=== PATIENT | female | born 1950 | race Asian ===

== ENCOUNTER 2019-04-22 08:30 | Inpatient (IN) | payer OTHER ==
[~2019-04-22] VITALS: Ht 154.9 cm; Wt 64.9 kg
[~2019-04-22 08:30] MED LIST: ceFAZolin sod 1 GM in NS 55 ML IVPB ONE
[2019-06-03] VITALS (10 sets, daily range): BP systolic 142–161; BP diastolic 71–88
[2019-06-03] MEDS ORDERED: ceFAZolin sod 1 GM in NS 55 ML IVPB ONE (07:00)
[2019-06-03] MEDS ORDERED: Rocuronium Bromide 50mg/5ml Inj IV ONE (10:04)
--- NOTE | 2019-06-03 10:20 | NUR ---
IV LR WAS STARTED BY JESUS MATTAOPS RN. NO S/S OF INFILTRATION.
[2019-06-03] MEDS ORDERED: LR 1000ml 1,000 ML IVLG SCH (10:22)
[2019-06-03] MEDS ORDERED: SYMBICORT2 PUFF1 INH (10:24)
[2019-06-03] MEDS ORDERED: HYDROCHLOROTHIA25 MG ORAL (10:24)
[2019-06-03] MEDS ORDERED: SINGULAIR10 MG ORAL (10:24)
[2019-06-03] MEDS ORDERED: XOPENEX HFA15 GM IH (10:24)
--- NOTE | 2019-06-03 10:28 | Anethesia Preoperative Eval ---
Anesthesia Pre-op PMH/ROS General Date of Evaluation: Jun 03, 2019 Time of Evaluation: 10:56 Anesthesiologist: Alexei ASA Score: ASA 3 Mallampati Score Class I : Soft palate, uvula, fauces, pillars visible Class II: Soft palate, uvula, fauces visible Class III: Soft palate, base of uvula visible Class IV: Only hard plate visible Mallampati Classification: Class II Surgeon: Sheba Diagnosis: Back Pain Surgical Procedure: Bilateral L4-5, L5-S1 Laminectomy, Discectomy Anesthesia History: none Family History: no anesthesia problems Allergies: Coded Allergies: No Known Allergies (Unverified , 04/17/19) Medications: see eMAR Patient NPO?: Yes Past Medical History Cardiovascular: Reports: HTN Pulmonary: Reports: asthma HEENT: Reports: cataract (L), cataract (R) PSxH Narrative: L Knee Arthroscopy, L Cat Ext IOL Anesthesia Pre-op Phys. Exam Physician Exam Vital Signs Date Time Temp Pulse Resp B/P (MAP) Pulse Ox O2 Delivery O2 Flow Rate FiO2 06/03/19 10:25 Room Air 06/03/19 10:41 98.6 67 20 143/73 (96) 96 Constitutional: NAD Neurologic: CN 2-12 intact Cardiovascular: RRR Respiratory: CTA Gastrointestinal: S/NT/ND Airway Exam Mallampati Score: Class II MO: full ROM: limited Teeth: missing, intact Anesthesia Pre-op A/P Risk Assessment & Plan Assessment: ASA 3 Plan: GA, SED, GlideScope Go Status Change Before Surgery: No Pre-Antibiotics Dru Grams Ancef IV Given Within 1 Hr of Incision: Yes Time Given: 11:16 Isacc Linda MD Jun 03, 2019 10:28
--- NOTE | 2019-06-03 10:29 | Immediate Post-Op Evaluation ---
Immediate Post-Op Evalulation Immediate Post-Op Evalulation Procedure: Bilateral L4-5, L5-S1 Laminectomy, Discectomy Date of Evaluation: Jun 03, 2019 Time of Evaluation: 13:39 IV Fluids: 800 LR Blood Products: 0 Estimated Blood Loss: 50 Urinary Output: 200 Blood Pressure Systolic: 161 Blood Pressure Diastolic: 85 Pulse Rate: 82 Respiratory Rate: 16 O2 Sat by Pulse Oximetry: 100 Temperature (Fahrenheit): 97.5 Pain Score (1-10): 2 Nausea: No Vomiting: No Complications 0 Patient Status: awake, reacts, patent, extubated, none Hydration Status: adequate Dru Grams Ancef IV Time Given: 11:16 Isacc Linda MD Jun 03, 2019 10:29
[2019-06-03] MEDS ORDERED: HYDROcodone/Acetamin 7.5/325 tab ORAL PRN (10:30)
[2019-06-03] MEDS ORDERED: LORazepam Inj 2mg/ml 1ml IV PRN (10:30)
[2019-06-03] MEDS ORDERED: Hydromorphone 0.5mg/0.5ml inj IVP PRN (10:30)
[2019-06-03] MEDS ORDERED: oxyCODONE HCL/Acetaminophen 5/325mg ORAL PRN (10:30)
[2019-06-03] MEDS ORDERED: fentaNYL 100 mcg/2 mL IV PRN (10:30)
[2019-06-03] MEDS ORDERED: HYDROcodone/Acetamin 5/325 tab ORAL PRN ×2 (10:30→10:45)
[2019-06-03] MEDS ORDERED: Labetalol 5mg/ml 20ml vial IV PRN (10:30)
[2019-06-03] MEDS ORDERED: Ketorolac 30mg Inj IV PRN ×2 (10:30)
[2019-06-03] MEDS ORDERED: Meperidine 50mg/ml Inj(FOR RIGORS ONLY) IVP PRN (10:30)
[2019-06-03] MEDS ORDERED: Acetaminophen (Non formulary) 100 ML IV ONE (10:30)
[2019-06-03] MEDS ORDERED: Metoclopramide 10mg/2ml Inj IVP PRN (10:30)
[2019-06-03] MEDS ORDERED: Midazolam 2mg/2ml Inj IVP PRN (10:30)
[2019-06-03] MEDS ORDERED: DiphenhydrAMINE 50mg/ml Inj IVP PRN (10:30)
[2019-06-03] MEDS ORDERED: Atropine Sulfate 0.4mg/ml inj IVP PRN (10:30)
[2019-06-03] MEDS ORDERED: Bupivacaine w/Epi 0.5% 30ml Vial INJ ONE (10:34)
[2019-06-03] MEDS ORDERED: Thrombin 5000 units TOPIC ONE ×2 (10:34→11:09)
[2019-06-03] MEDS ORDERED: Gelfoam Size TOPIC ONE (10:34)
[2019-06-03] MEDS ORDERED: Bacitracin 50000 Units Vial ONE (10:34)
[2019-06-03] MEDS ORDERED: Lidocaine 1% MPF 10mg/ml 5ml ONE (10:44)
[2019-06-03] MEDS ORDERED: Sodium Chloride 10ml vial INJ ONE (10:44)
[2019-06-03] MEDS ORDERED: Dexamethasone 4mg/ml vial ONE (10:44)
[2019-06-03] MEDS ORDERED: Morphine Sulfate 4mg/ml Inj (IV USE ONLY) IVP PRN (10:45)
[2019-06-03] MEDS ORDERED: Cyclobenzaprine 10mg Tab ORAL PRN (10:45)
[2019-06-03] MEDS ORDERED: Midazolam 2mg/2ml Inj ONE (10:46)
[2019-06-03] MEDS ORDERED: fentaNYL 100 mcg/2 mL IV ONE (10:46)
--- NOTE | 2019-06-03 10:46 | Pre-Procedure Note/Attestation ---
Pre-Procedure Note/Attestation Complete Prior to Procedure Procedure Narrative: L45S1 laminectomy and discectomy B Indications for Procedure Pre-Operative Diagnosis: L45S1 HNP Attestation I attest that I discussed the nature of the procedure; its benefits; risks and complications; and alternatives (and the risks and benefits of such alternatives ), prior to the procedure, with the patient (or the patient's legal sales representative girls' apparel). I attest that, if there was a reasonable possibility of needing a blood transfusion, the patient (or the patient's legal sales representative girls' apparel) was given the [facility] standardized written summary, pursuant to the [place] Blood Safety Act ([place] Health and Safety Code # 1645, as amended). I attest that I re-evaluated the patient just prior to the surgery and that there has been no change in the patient's H&P, except as documented below: Angelo Scruggs MD Jun 03, 2019 10:46
[2019-06-03] MEDS ORDERED: Lidocaine 1% Plain 30 ml INJ ONE (10:53)
[2019-06-03] MEDS ORDERED: Neostigmine 1mg/ml 10ml Inj ONE (11:00)
[2019-06-03] MEDS ORDERED: Sterile Water Irrig 1000ml IRRIG ONE (11:00)
[2019-06-03] MEDS ORDERED: NS Irrig 1000ml ONE (11:00)
[2019-06-03] MEDS ORDERED: Propofol 1,000mg/ 100ml btl IV ONE (11:00)
[2019-06-03] MEDS ORDERED: LR 1000ml ONE (11:00)
[2019-06-03] MEDS ORDERED: Morphine Sulfate 2mg/ml Inj(IV/IM USE ONLY) IVP PRN (11:00)
[2019-06-03] MEDS ORDERED: Vancomycin 1gm vial IVPB ONE ×2 (11:09→11:47)
--- NOTE | 2019-06-03 12:21 | 48 Hour Post Anesthesia Eval ---
Post Anesthesia Evaluation Procedure: Bilateral L4-5, L5-S1 Laminectomy, Discectomy Date of Evaluation: Jun 03, 2019 Time of Evaluation: 15:52 Blood Pressure Systolic: 156 0: 72 Pulse Rate: 67 Respiratory Rate: 18 Temperature (Fahrenheit): 98.2 O2 Sat by Pulse Oximetry: 100 Airway: patent Nausea: No Vomiting: No Pain Intensity: 2 Hydration Status: adequate Cardiopulmonary Status: Stable Mental Status/LOC: patient returned to baseline Follow-up Care/Observations: 0 Post-Anesthesia Complications: 0 Follow-up care needed: N/A Isacc Linda MD Jun 03, 2019 12:21
[2019-06-03] MEDS ORDERED: Glycopyrrolate 0.2mg/ml 1ml Vial ONE ×3 (12:52→12:57)
[2019-06-03] MEDS ORDERED: Naloxone 0.4mg/ml Inj ONE (13:04)
--- NOTE | 2019-06-03 13:28 | Brief Operative Note ---
Immediate Post Operative Note Operative Note Pre-op Diagnosis: L45S1 HNP Procedure: B laminectomy L45, L lami disc l5s1 Post-op Diagnosis: same as pre-op Findings: consistent w/pre-op dx studies Surgeon: radha [place] [employer] Maintainer: yanna Anesthesiologist: edda Anesthesia: general Specimen: none Complications: none Condition: stable Fluids: 800 Estimated Blood Loss: minimal Drains: none Implant(s) used?: No Angelo Scruggs MD Jun 03, 2019 13:28
[2019-06-03] MEDS ORDERED: Milk of Magnesia 30ml Ud ORAL PRN (13:30)
[2019-06-03] MEDS ORDERED: Chloraseptic Spray 20mL Bottle ORAL PRN (15:32)
--- NOTE | 2019-06-03 15:39 | Diagnostic Imaging Report ---
. INDICATION: Pain, intraoperative TECHNIQUE: Intraoperative imaging Fluoroscopy time: 3.8 seconds Total dose: 0.07103 mGym2 Total number of images: One COMPARISON: None FINDINGS: Single intraoperative image demonstrates a surgical tool posterior what is presumably the L5-S1 disc. IMPRESSION: Intraoperative imaging, as described
[2019-06-03] MEDS ORDERED: Albuterol/Ipratropium 3ml neb HHN PRN (15:45)
--- NOTE | 2019-06-03 15:45 | NUR ---
NURSE NOTES: Pt arrived alert breathing with oxygen. Has full sensation to all digits, in lower extremities. Bandage is clean and intact. SCD on and functioning. Call light is in reach. Ice chips provided denies pain at this time
--- NOTE | 2019-06-03 15:50 | NUR ---
NURSE NOTES: Pt received with eye patch to left eye, per pt had a recent cataract as of 3 weeks ago Per pt vision is not blurred denies pain or discomfort. Patch removed by Surgery Nurse
--- NOTE | 2019-06-03 16:30 | NUR ---
NURSE NOTES: Remains comfortable states she does not take mediation and feels alive feeling some discomfort. Refused pain mediation at this time. Reposited
[2019-06-03] MEDS: D5 1/2NS 1,000 ML IV SCH (17:29)
[2019-06-03] MEDS: Docusate 100mg cap ORAL SCH (17:29)
--- NOTE | 2019-06-03 17:45 | Consultation ---
DATE OF CONSULTATION: 06/03/2019 CONSULTING PHYSICIAN: Blaze Rivera M.D. REFERRING PHYSICIAN: Angelo Scruggs M.D. REASON FOR CONSULTATION: Acute pain consult. HISTORY OF PRESENT ILLNESS: Dear Dr. Angelo Scruggs, Thank you kindly for consulting me to evaluate and render an opinion as to how to proceed in the management of the patient's acute postoperative lumbar spine pain after her lumbar spine decompressive surgery today. On the request of the patient at the bedside, I discussed the case in detail with yourself, Dr. Cunningham along with the nurse, QUIRINO Sherman. The patient injured her lumbar spine in a work-related injury. Today, she required bilateral decompressive lumbar spine surgery. I was consulted to help with her postoperative care and pain management. I saw the patient at bedside with her . I performed a detailed history and physical examination. I spent over 75 minutes in consultation with an additional 30 minutes in medical record review. Multiple records reviewed from the patient's medical chart including utilization review and surgical authorization by [facility] authorizing lumbar spine surgery with hospitalization at [facility] as certified. Further record review included preoperative history and physical by Dr. John Marcus dated May 30, 2019 along with diagnostic testing. Multiple records were reviewed from today's date of surgery at [facility], including consent for surgical treatment, consent for anesthesia, consent for blood products, medication administration record, medication reconciliation order form, PACU record, PACU orders, anesthesia record, pre- and post anesthesia evaluation record, postoperative surgery report and postoperative spine surgery report by Dr. Scruggs, guidelines for prophylactic antibiotics, guidelines for DVT prophylaxis, initial nursing assessment, 24-hour medical and surgical flow sheet, surgical invasive procedure checklist, and Donald-Corley diagram for cognitive disability. PAST MEDICAL HISTORY: 1. Acute postoperative lumbar spine pain, status post lumbar spine surgery by Dr. Angelo Scruggs, May 2019. 2. Work-related injury. 3. Elderly age. 4. Chronic asthma. 5. Chronic lower back pain. 6. Hypertension. 7. Kidney stones. 8. Fatty liver. PAST SURGICAL HISTORY: 1. Left knee arthroscopy. 2. Left eye cataract surgery, 05/13/2019. FAMILY HISTORY: Hypertension, coronary artery disease, malignancy. SOCIAL HISTORY: The patient is accompanied at the bedside by her . She denies tobacco, alcohol, or illicit drug use. MEDICATIONS AT HOME: Xopenex, Singulair, hydrochlorothiazide, and Symbicort. ALLERGIES: No known drug allergies. REVIEW OF SYSTEMS: Per attending physician. PHYSICAL EXAMINATION: GENERAL: Age 68. Height 5 feet 3 inches, weight 130 pounds. Body mass index 23. HEENT: Normocephalic and atraumatic. Left eye with eye patch, status post cataract surgery three weeks ago. NEUROLOGIC: Moving all extremities x4. Detailed neurologic exam per Dr. Scruggs. Pain with range of motion of the lumbar spine. CHEST: Clear to auscultation. HEART: Regular rate and rhythm. No wheezing appreciated. ABDOMEN: Soft. BREASTS/GENITOURINARY: Deferred. LABORATORY AND DIAGNOSTIC DATA: Diagnostic testing from May 30, 2019 shows glucose 99, sodium 140, potassium 3.7, chloride 104, bicarb 25, BUN 19, and creatinine 0.7. Calcium 9.6. Total protein 7.4, albumin 4.3. AST 17, ALT 18, and alkaline phosphatase 66. Total bilirubin 0.3. White count 8, hematocrit 40, and platelets 250,000. INR 1.0, PTT 27. A 12-lead EKG shows normal sinus rhythm, ventricular rate 79, no evidence for acute cardiac ischemia. Preoperative chest x-ray shows no acute cardiopulmonary disease. IMPRESSION: 1. Acute postoperative lumbar spine pain, status post lumbar spine surgery by Dr. Angelo Scruggs, May 2019. 2. Work-related injury. 3. Elderly age. 4. Chronic asthma. 5. Chronic lower back pain. 6. Hypertension. 7. Kidney stones. 8. Fatty liver. TREATMENT RECOMMENDATIONS: I have devised the following analgesic plan to help with her pain control postoperatively. The patient appears petite and relatively narcotic-naive. She has had kidney stones and previous surgeries in the past. She states that she has tolerated hydrocodone. I will start her on a low dose of [place] 5/325 mg one tablet orally every three hours p.r.n. for mild pain. The patient states that morphine has worked well during previous hospitalizations. I have started her on intravenous dose of morphine 2 mg intravenously every two hours p.r.n. for moderate pain complaints. If these two doses of [place] and morphine are inadequate, I would then increase the doses and/or frequency after these earlier doses have been tolerated without any adverse side effects including respiratory depression. I would empirically place the patient on Protonix 40 mg daily for GI ulcer prophylaxis and I have ordered p.r.n. dose of Mylanta 30 mL every 6 hours in case of any GERD symptom exacerbation. I have ordered low-dose of Flexeril 5 mg orally in case of any muscle spasm symptoms. The patient does not appear to be anxious, so I would avoid the class of benzodiazepines in this elderly woman while she is already on opioid narcotics. I have ordered a dose of Fioricet one tablet orally every 8 hours in case of any headache complaints. I have asked nursing team to place a Chloraseptic spray bottle at the bedside in case of any sore throat complaints postoperatively. I have added Zofran 4 mg intravenously every 4 hours as a rescue antiemetic. I have ordered Benadryl 25 mg orally every 6 hours in case of any itching complaints. I will order incentive spirometer to encourage good pulmonary toilet in this elderly woman. With her chronic asthma, I have asked respiratory therapy to start her on [id number] nebulizer treatment with albuterol and Atrovent to keep her asthma symptoms at bay. I will defer her chronic asthma and hypertension issues to the hospitalist physician. I will defer DVT prophylaxis to the surgeon. Blaze Rivera M.D. DR: EVENS JOB#: [id number] CC:
[2019-06-03] MEDS ORDERED: Albuterol ud Inhalation HHN SCH (19:00)
--- NOTE | 2019-06-03 19:30 | NUR ---
NURSE NOTES: Received report & pt from QUIRINO Rodríguez. Pt lying in bed, a&ox4, on O2 via NC @ 2LPM. No s/s of acute distress & no c/o pain at this time. Surgical dressing C/D/I. IV site intact with IVF running as ordered. Call light within reach. Plan of care discussed.
[2019-06-03] MEDS: Albuterol/Ipratropium 3ml neb HHN SCH (19:53)
--- NOTE | 2019-06-03 19:56 | NUR ---
NURSE NOTES: Pt escorted to restroom with use of walker , body mechanics used. Back straight while walking. Urinated without difficulty.
[2019-06-03] MEDS: ceFAZolin sod 1 GM in D5W 55 ML IV SCH (20:20)
--- NOTE | 2019-06-03 20:45 | Operative Note - Dictated ---
DATE OF OPERATION: 06/03/2019 SURGEON: Angelo Scruggs M.D. ADULT PSYCHIATRIST: Jude Lord PA-C. ANESTHESIOLOGIST: Isacc Linda M.D. ANESTHESIA TYPE: General endotracheal anesthesia. PREOPERATIVE DIAGNOSES: 1. Spinal stenosis L4-L5 with a grade 0 to 1 spondylolisthesis and advanced facet arthrosis. 2. Left-sided L5-S1 disk protrusion with lateral recess stenosis. POSTOPERATIVE DIAGNOSES: 1. Spinal stenosis L4-L5 with a grade 0 to 1 spondylolisthesis and advanced facet arthrosis. 2. Left-sided L5-S1 disk protrusion with lateral recess stenosis. PROCEDURES: 1. Bilateral hemilaminectomy at L4 and superior one-half of L5. 2. Left-sided laminectomy, decompression of nerve root, and microdiskectomy L5-S1. 3. Use of operating microscope. 4. Neurodiagnostic monitoring. 5. Use of fluoroscopy. ESTIMATED BLOOD LOSS: Minimal. COMPLICATIONS: None. FINDINGS: Notably unstable motion segments with marked thickening of the tissues and epidural adhesions at L4-L5. INDICATION: The patient is a very pleasant 68-year-old with fairly significant bilateral lower extremity radiculopathic complaints. The MRI confirmed severe spinal stenosis L4-L5, minimal anterolisthesis at L4-L5 as well as left-sided disk protrusion at L5-S1. Risks, cons, pros, benefits of surgery were discussed. After conservative care failed, the patient elected to proceed with surgical intervention. RISKS NOTE: The patient was explained in detail risks, benefits of the surgery to include, but not be limited to those of infection, damage to nerves, vessels, tendons, anesthetic risk, allergic reaction, aspiration, possibly . The patient understood and wished to proceed. OPERATIVE PROCEDURE IN DETAIL: The patient was taken to the operative suite after general endotracheal anesthesia was obtained. She was turned prone onto a radiolucent table. The back was prepped and draped in usual sterile fashion. Needle was placed and was felt to be the L5 pedicle and this was confirmed. At this point, skin was infiltrated with Marcaine with epinephrine. A midline incision was carried out from L4 through S1. Subperiosteal dissection was carried out first on the left side. Under fluoroscopic confirmation, the L5-S1 hemilaminectomy was performed using standard technique by drilling out lamina of L5 and superior edge of S1. Medial facetectomy was performed. Ligamentum flavum was removed in a piecemeal fashion. Nerve root was gently retracted medially. Minimal diskectomy was performed, however, was noted to be markedly degenerated and calcified. At this point, this area was packed off. Meticulous hemostasis was obtained. Left-sided hemilaminectomy was then performed generously of the inferior two-thirds of L4 lamina and superior one-third of L5. Medial facetectomy was performed. Extensive tissue hypertrophy was noted consistent with chronic instability at this level. Once the ligamentum flavum was removed, the dural sac was able to re-expand on the left side. Once satisfied with the laminectomy and the removal of excess ligamentum flavum and decompression of the left lateral recess at L4 and L5, in an identical fashion the process was reproduced on the right side at L4 and L5. Copious irrigation was performed after meticulous hemostasis was achieved. At this point, the patient did receive 500 mg of powdered vancomycin, 2/3 of which was below the fascia, one third above the fascia. Fascia was repaired using #1 Vicryl, subcutaneous closure using 2-0 Vicryl. Dermabond was applied. Sterile dressing was applied. The patient tolerated the procedure well. Sponge and needle counts were correct. Angelo Scruggs M.D. DR: Pati JOB#: [id number] CC:
[2019-06-04] VITALS: BP 115/63
[2019-06-04] MEDS: Albuterol/Ipratropium 3ml neb HHN SCH ×3 (01:50→12:50)
[2019-06-04] MEDS: D5 1/2NS 1,000 ML IV SCH (02:23)
[2019-06-04 04:00] VITALS: BP 125/66
[2019-06-04] MEDS: ceFAZolin sod 1 GM in D5W 55 ML IV SCH ×3 (04:13→11:30)
--- NOTE | 2019-06-04 07:00 | Progress Note ---
DATE: 06/04/2019 ACUTE PAIN MANAGEMENT PHYSICIAN PROGRESS NOTE MEDICATIONS: Medication administration record reviewed. Medications include Fioricet, Mylanta, albuterol, Catapres, Flexeril, Benadryl, Colace, Steens, morphine, milk of magnesia, Zofran, Protonix, Chloraseptic spray, Restoril. LABORATORY STUDIES: No interval laboratory studies. VITAL SIGNS: Afebrile, pulse 69, respirations 17, blood pressure 125/66, oxygen saturation 98% on room air. I saw the patient at the bedside. I discussed the case with the surgeon, Dr. Scruggs and the orthopedic nurse RN, Lisa. The patient is doing extremely well after her lumbar spine surgery. I examined the lumbar spine dressing. The Tegaderm OpSite was intact; however, the gauze appeared fairly saturated. I will discuss with Dr. Scruggs further regarding dressing changes prior to discharge. The patient has been moving in and out of bed with relative ease. The IV morphine has been working extremely well for analgesia and I did leave a prescription for Steens 5 mg tablets quantity of 30 for outpatient usage. The patient states that she has tolerated Steens well in the past without any adverse side effects. The patient denies any shortness of breath or chest pain. She has been compliant using her incentive spirometer. The Chloraseptic spray is at the bedside, providing good topical relief for postoperative intubation, sore throat complaints. The patient is tolerating liquids and denies any nausea episodes. She will advance her diet as tolerated. The patient will continue with ambulation and sequential compression pneumatic devices for DVT prophylaxis. The patient seems extremely pleased with her surgical outcome at this point. We will continue supportive care until Dr. Scruggs re-evaluate the patient later this morning to determine if she is a candidate for discharge to home today, or requires further supportive care for another 24 hours here in the hospital. I will continue her current analgesic regimen here in the hospital, which seems to be working very well. There are no signs of oversedation or respiratory depression under current opioid analgesic regimen. Blaze Rivera M.D. DR: MICK JOB#: [id number] CC:
--- NOTE | 2019-06-04 07:30 | NUR ---
HAND-OFF: Report given to QUIRINO Ricks. Rounds done.
[2019-06-04 08:00] VITALS: BP 126/79
--- NOTE | 2019-06-04 08:00 | NUR ---
NURSE NOTES: Received report from Lisa RN, pt a/a/o x4 laying in bed with no signs of distress or other issues at this time. pt is able to ambulate to the restroom with no signs of distress or other issues at this time. surgical dressing saturated. RN will changed as indicated by . plan to dc home today. call light within reach, bed in lowest position. side rales up x4. I will f/u as needed.
--- NOTE | 2019-06-04 08:35 | Orthopedic Spine Progress Note ---
Ortho Spine - Progress Note Subjective Symptoms: c/o post-op back pain, improved - as compared to pre-op Objective Vital Signs: Last 24 Hour Vital Signs Date Time Temp Pulse Resp B/P (MAP) Pulse Ox O2 Delivery O2 Flow Rate FiO2 06/04/19 04:00 98.1 69 17 125/66 (85) 98 06/04/19 01:53 97 Nasal Cannula 2.0 28 06/04/19 01:20 75 16 99 Nasal Cannula 2.0 71 18 97 06/04/19 00:00 98.3 66 16 115/63 (80) 97 06/03/19 21:00 Nasal Cannula 2.0 06/03/19 20:00 97.6 68 17 145/71 (95) 98 06/03/19 19:56 70 18 100 Nasal Cannula 2.0 28 06/03/19 19:53 76 16 99 Nasal Cannula 2.0 28 72 18 95 06/03/19 15:00 96.6 66 18 142/78 (99) 99 06/03/19 14:40 97.5 71 13 144/77 100 Nasal Cannula 3 06/03/19 14:20 79 16 161/87 100 Nasal Cannula 3 06/03/19 14:05 84 13 154/88 100 Nasal Cannula 3 06/03/19 13:55 84 18 144/85 100 Simple Mask 6 06/03/19 13:45 75 13 148/80 100 Simple Mask 6 06/03/19 13:40 79 14 147/81 100 Simple Mask 6 06/03/19 13:38 97.5 84 17 161/85 100 Simple Mask 6 06/03/19 13:36 67 18 100 06/03/19 13:35 82 16 100 06/03/19 10:41 98.6 67 20 143/73 (96) 96 06/03/19 10:25 Room Air I&O: Intake and Output 06/03/19 06/04/19 19:00 07:00 Intake Total 1240 ml 1480 ml Output Total 250 ml Balance 990 ml 1480 ml Intake Oral 240 ml 780 ml IV Total 1000 ml 700 ml Output Urine Total 200 ml Estimated Blood Loss 50 ml # Voids 1 3 Wound: other - saturated- new dressing applied Drains: none Neuro Status: normal Assessment Procedure Performed: B laminectomy L45, L lami disc l5s1 Plan Plan: PT, discharge plan Angelo Scruggs MD Jun 04, 2019 08:35
[2019-06-04] MEDS: Docusate 100mg cap ORAL SCH (08:48)
--- NOTE | 2019-06-04 08:55 | NUR ---
PT EVALUATION NOTE Patient seen for initial evaluation. Patient presents with impaired functional mobility s/p lumbar surgery. Patient educated in back precautions and proper log roll technique for in/OOB. Patient able to perform bed mobility and transfers with SBA using proper log roll technique and proper body mechanics. Patient able to ambulate 150 ft with SBA, no assistive device, with steady gait. Patient will benefit from skilled inpatient PT intervention to address compliance with back precautions and increased level of independence with functional mobility. Recommend discharge home once medically cleared by MD. No DME needs anticipated at this time. Addendum: 06/04/19 at 0932 by MIROSLAVA RICH PT Amended: Links added.
[2019-06-04] MEDS ORDERED: NORCO 5-325 TA1 EACH ORAL (11:51)
[2019-06-04 12:00] VITALS: BP 124/65
--- NOTE | 2019-06-04 12:43 | NUR ---
NURSE NOTES: Received discharge order from Dr. Scruggs. discharge instructions and belongings list given to patient and pt's . surgical dressing changed prior to d/c as MD indicated and also extra supplies given to patient. IV removed prior to d/c. call light within reach, bed in lowest position. side rales bed up x2. I will f/u as needed.
--- NOTE | 2019-06-04 17:01 | NUR ---
CASE MANAGEMENT: INITIAL REVIEW 68YR OLD FEMALE HERE FOR ELECTIVE SURGERY CC: BACK PAIN SI:BACK PAIN 98.6 67 20 143/73 96% ON RA IS:BILATERAL L4-5, L5-S1 LAMINECTOMY, DISCECTOMY IN SURGERY NOW \: 3E MED SURG UNIT
--- NOTE | 2019-06-04 21:17 | Discharge Summary ---
Discharge Summary Hospital Course Date of Admission Jun 03, 2019 at 09:44 Date of Discharge Jun 04, 2019 at 12:45 Admitting Diagnosis Spinal stenosis L4-L5 with a grade 0 to 1 spondylolisthesis and advanced facet arthrosis. Left-sided L5-S1 disk protrusion with lateral recess stenosis. Reason for Hospitalization: elective surgery HPI Tenisha Barnett is a 68 year old female who was admitted on Jun 03, 2019 at 09: 44 for Spinal stenosis L4-L5 with a grade 0 to 1 spondylolisthesis and advanced facet arthrosis and Left-sided L5-S1 disk protrusion with lateral recess stenosis. Patient was admitted for elective surgery Consultations Dr Rivera pain specialist Procedures s/p 06/03/[address] Scruggs 1. Bilateral hemilaminectomy at L4 and superior one-half of L5. 2. Left-sided laminectomy, decompression of nerve root, and microdiskectomy L5-S1. 3. Use of operating microscope. 4. Neurodiagnostic monitoring. 5. Use of fluoroscopy. Hospital Course status post surgery course of recovery uneventful initially IV fluids s/p perioperative antibiotics neurovascular status closely monitored, remained stable incision with dressing; clean dry and intact pain management addressed pain specialist followed; pain was controlled remained hemodynamically stable ambulated with PT fall precautions maintained; safe for ambulation DVT prophylaxis with SCD provided use of incentive spirometry was encouraged while in the bed tolerated diet , IV fluids discontinued GI prophylaxis provided antiemetics were on board as needed voided freely bowel regimen instituted patient was stable for discharge discharge instructions provided follow up with surgeon in the office as instructed FINAL DIAGNOSES 1. Spinal stenosis L4-L5 with a grade 0 to 1 spondylolisthesis and advanced facet arthrosis. 2. Left-sided L5-S1 disk protrusion with lateral recess stenosis. 3. s/p bilateral hemilaminectomy L45, L laminectomy, decompression and microdiscectomy L5S1 4, Work related injury 5. Chronic asthma 6. Chronic lower back pain 7. Hypertension 8. Kidney stones 9. Fatty liver Discharge Medications Continued Medications: Budesonide/Formoterol Fumarate (Symbicort 160-4.5 Mcg Inhaler) 6 Gm Hfa.aer.ad 2 PUFFS INH BID for ASTHMA, #1 INH 0 Refills (This prescription has been renewed ) Hydrochlorothiazide* (Hydrochlorothiazide*) 25 Mg Tablet 25 MG ORAL DAILY for HTN, TAB (This prescription has been renewed) Hydrocodone Bit/Acetaminophen 5-325* (Lexa 5-325*) 1 Each Tablet 1 TAB ORAL Q4H PRN for For Pain, #30 TAB 0 Refills (This prescription has been renewed) Levalbuterol Tartrate (Xopenex Hfa) 15 Gm Hfa.aer.ad 2 PUFFS IH BID for ASTHMA (This prescription has been renewed) Montelukast Sodium* (Singulair*) 10 Mg Tablet 10 MG ORAL DAILY for SINUS, TAB (This prescription has been renewed) Discharge Condition Upon Discharge: stable Discharge Disposition Patient was discharged to Home (01) Discharge Instructions Discharge Instructions Special Instructions I have been assigned to complete a D/C Summary on this account. I was not involved in the patient management Destiny Prescott NP Jun 04, 2019 21:17
== END 2019-06-04 12:45 | disposition home or self-care (01) | DRG 520 ==
LOC: SDSOVERFLO 06-03 09:44 → 3E 06-03 15:00
PROC: 01NB0ZZ Release Lumbar Nerve, Open Approach (ICD-10-PCS; principal; 2019-06-03 11:30)
PROC: 0SB40ZZ Excision of Lumbosacral Disc, Open Approach (ICD-10-PCS; principal; 2019-06-03 11:30)
PROC: 01NR0ZZ Release Sacral Nerve, Open Approach (ICD-10-PCS; principal; 2019-06-03 11:30)
DX: M48.061 Spinal stenosis, lumbar region without neurogenic claudication (principal); M51.27 Other intervertebral disc displacement, lumbosacral region; M48.07 Spinal stenosis, lumbosacral region; M43.16 Spondylolisthesis, lumbar region; J45.909 Unspecified asthma, uncomplicated; I10 Essential (primary) hypertension; K76.0 Fatty (change of) liver, not elsewhere classified
CPT/HCPCS: 36415; 72020; 76000; 86850; 86900; 86901; 87081; 94003; 94150; 94640; 94664; J2250; J2405; J2710; J7620